=== PATIENT | male | born 1970 | race Native Hawaiian/Other Pacific Islander ===

== ENCOUNTER 2020-08-03 18:42 | Emergency (ER) | payer OTHER ==
[~2020-08-03] VITALS: Ht 185.4 cm; Wt 104.3 kg
[2020-08-03] MEDS ORDERED: CVS OMEPRAZOLE20 M1 PO (19:03)
[2020-08-03] MEDS ORDERED: AMLODIPINE BESYLATE PO (19:03)
[2020-08-03] MEDS ORDERED: HYDR25TA60 PO (19:03)
[2020-08-03 19:15] LABS: PLATELET COUNT 303 K/uL (142-355)
[2020-08-03 19:18] LABS: SODIUM 135 mmol/L (136-145)
[2020-08-03 19:23] LABS: PARTIAL THROMBOPLASTIN TIME 28.8 SECONDS (24.5-33.6)
[2020-08-03 20:24] VITALS: BP 106/46; TEMP 99.1
== END 2020-08-03 20:35 ==
LOC: ED 18:42
PROVIDERS: Hospitalist
DX: R07.89 Other chest pain (principal)
CPT/HCPCS: 36415; 80053; 82550; 83880; 84484; 85027; 85379; 85610; 85730; 93005; 96375; 99284; J1885; J2360; J2405